=== PATIENT | female | born 1930 | race Caucasian/White ===

== ENCOUNTER 2016-06-10 07:46 | Emergency (ER) | payer MEDICARE ==
[2016-06-10] MEDS ORDERED: REGADENOSON 0.1 MG DOSE IV ONE (07:47)
[2016-06-10] MEDS ORDERED: ASPIRIN CHEWTAB 81 MG TABLET ONE (08:25)
[2016-06-10] MEDS ORDERED: LACTATED RINGERS 1,000 ML ONE (08:25)
[2016-06-10 08:32] LABS: BASO # 0.1 K/mm3 (0.0-0.2); BASO % 0.8 % (0.2-1.0); EOS # 0.4 (0.0-0.5); EOS % 4.7 % (0.9-2.9); HEMATOCRIT 37.2 % (37.0-47.0); HEMOGLOBIN 11.6 gm/l (12.0-16.0); IMM NEUT% 0.3 % (0-1); LYMPH # 2.2 (1.0-4.8); LYMPH % 29.3 % (15-45); MEAN CELL VOLUME 94.4 fl (81.0-99.0); MEAN CORPUSCULAR HEMOGLOBIN 29.4 pg (27.0-31.0); MEAN CORPUSCULAR HGB CONC 31.2 g/dl (33.0-37.0); MEAN PLATELET VOLUME 9.5 fl (7.4-10.4); MONO # 0.8 (0.0-0.8); MONO % 10.4 % (4-12); NEUT % 54.5 % (43-75); PLATELET COUNT 271 K/mm3 (130-400); RED CELL DISTRIBUTION WIDTH 13.1 % (11.5-14.5)
[2016-06-10 08:47] LABS: TROPONIN I < 0.01 ng/ml (0.0-0.06)
[2016-06-10 09:24] LABS: I-STAT CREATININE 0.9 mg/dL (0.6-1.3)
--- NOTE | 2016-06-10 09:24 | RAD ---
CHEST - 2 VIEWS COMPARISON: Chest one view, 05/17/2010 HISTORY: Chest pain FINDINGS: Views: Frontal and lateral chest Lungs: Normal Heart and vessels: Cardiomegaly with vascular prominence. Trachea and bronchi: Normal Mediastinum and yessy: Normal Costophrenic sulci: Normal Chest wall and bones: No acute finding. Sternotomy wires, degenerative changes in the spine, severe osteoarthritis of the shoulders. Upper abdomen: Surgical clips in the upper abdomen. IMPRESSION: Cardiomegaly with pulmonary vascular congestion.
[2016-06-10 13:06] LABS: URINE BILIRUBIN NEGATIVE (NEGATIVE); URINE BLOOD TRACE (NEGATIVE); URINE GLUCOSE (UA) NEGATIVE (NEGATIVE); URINE LEUKOCYTE ESTERASE 2+ (NEGATIVE); URINE NITRITE NEGATIVE (NEGATIVE); URINE PROTEIN NEGATIVE (NEGATIVE); URINE UROBILINOGEN NORMAL (0-1 mg/dl)
[2016-06-10 13:07] LABS: URINE APPEARANCE CLEAR; URINE COLOR YELLOW
[2016-06-10 13:23] LABS: URINE RBC 0-1 /hpf
[2016-06-10 13:25] LABS: URINE BACTERIA 1+
--- NOTE | 2016-06-10 15:40 | NUC MED ---
CARDIAC STRESS MULTIPLE STUDY COMPARISON: Chest 2 views, 06/10/2016 HISTORY: Chest pain TECHNIQUE: Gated SPECT performed after IV injection sestamibi at rest and again after pharmacologic stress. End diastolic and end systolic measurements of left ventricular volume were used to calculate the ejection fracture. Computer generated wall motion reproduction was performed. DOSE: Sestamibi (rest): 12.0 mCi Sestamibi (stress): 37.1 mCi Lexiscan: 0.4 mg ECG findings: See separate report by Dr. Trav Georges III, . FINDINGS: Left ventricle perfusion at rest: Normal Left ventricle perfusion at stress: Decreased activity at the apex of the heart in the distal LAD distribution Ejection fraction: 76% Wall motion: Normal IMPRESSION: Reversible ischemia with decreased activity at the apex of the heart relative the remainder of the heart after Lexiscan injection, and the distal LAD distribution. Normal ejection fraction. The results were discussed with Rosales Soria M.D. [id number] at 15:36
[2016-06-10 16:46] LABS: ALB/GLOB RATIO 1.1 (>1.0); ALBUMIN 3.9 gm/dL (3.5-5.7); MAGNESIUM 2.1 mg/dL (1.9-2.7)
[2016-06-10] MEDS ORDERED: MAALOX/LIDO2%VISC/SIMETHICONE 40 ML BOT ONE (16:48)
== END 2016-06-10 17:49 | disposition home or self-care (01) ==
LOC: ED 07:46
DX: R07.9 Chest pain, unspecified (principal); N39.0 Urinary tract infection, site not specified; K21.9 Gastro-esophageal reflux disease without esophagitis; E11.9 Type 2 diabetes mellitus without complications; E78.5 Hyperlipidemia, unspecified; E78.00 Pure hypercholesterolemia, unspecified; Z95.1 Presence of aortocoronary bypass graft; I51.9 Heart disease, unspecified; Z79.82 Long term (current) use of aspirin; Z79.891 Long term (current) use of opiate analgesic; Z79.899 Other long term (current) drug therapy; Z88.5 Allergy status to narcotic agent; Z88.8 Allergy status to other drugs, medicaments and biological substances